=== PATIENT | male | born 1950 | race Caucasian/White ===

== ENCOUNTER 2018-01-01 07:48 | Inpatient (IN) | payer MEDICARE, OTHER ==
[2018-01-01] VITALS (19 sets, daily range): BP systolic 98–168; BP diastolic 51–90
[~2018-01-01] VITALS: Ht 177.8 cm; Wt 93.9 kg
--- NOTE | ~2018-01-01 | EKG ---
[place] [address] ELECTROCARDIOGRAM REPORT Name: BASSEM BRYANT Room: [address] ADM IN M.R.#: [id number] Admission: 01/01/18 Attend Phys: Davon Ordonez MD, F Discharge: Date of : 48 Report #: [id number] THIS REPORT FOR: //name// [facility] Test Date: 2018-01-02 Test Time: 08:41:28 Pat Name: BASSEM BRYANT Department: Room: [address] Gender: M Lead Radiologic Technologist: : 1950 Requested By: Davon Ordonez Order Number: [id number] Reading MD: Measurements Intervals [place] Rate: 52 P: 70 MD: 161 QRS: 70 QRSD: 91 T: 125 QT: 547 QTc: 509 Interpretive Statements Sinus rhythm Probable left atrial enlargement Abnormal T, consider ischemia, lateral leads Prolonged QT interval Compared to ECG 01/01/2018 14:16:10 No significant changes [email or web address] By: 0841 0841 Epiphany EpiphanyMD /EPI
--- NOTE | ~2018-01-01 | H ---
[address] [address] HISTORY AND PHYSICAL Name: BASSEM BRYANT Room: [address] IN .R.#: [id number] Admission: 01/01/18 Attend Phys: Davon Ordonez MD, F Discharge: 01/02/18 Date of : 48 Report #: [id number] THIS REPORT FOR: //name// Please refer to the History and Physical performed in the physician's office. By: [id number] Records Staff MARLENY /PEACE
[~2018-01-01 07:48] MED LIST: BYSTOLIC 5 MG5 M1 PO; SORINE 80 MG TA80 M1 PO; XARELTO20 MG PO
[2018-01-01 08:37] LABS: HEMATOCRIT 46.7 % (42.0-52.0); HEMOGLOBIN 15.4 gm/dL (14.0-18.0); MCH 33.2 pg (26.0-34.0); MCV 100.7 fL (80.0-100.0); MPV 9.1 fl. (7.2-11.1); RBC 4.64 mil/uL (4.50-6.00); RDW-CV 13.6 % (10.5-14.5); WBC 7.1 thou/uL (4.0-11.0)
[2018-01-01 08:46] LABS: PROTIME 10.4 Seconds (9.20-11.50)
[2018-01-01] MEDS ORDERED: ASPIR 8181 MG PO (08:59)
[2018-01-01] MEDS ORDERED: CARDIZEM CD120 MG PO (09:00)
--- NOTE | 2018-01-01 09:07 | EKG ---
[place] [address] ELECTROCARDIOGRAM REPORT Name: BRYANTBASSEM Heaven Room: [facility]#: [id number] Admission: 01/01/18 Attend Phys: Davon Ordonez MD, F Discharge: Date of : 48 Report #: [id number] THIS REPORT FOR: //name// [facility] Test Date: 2018-01-01 Test Time: 08:24:10 Pat Name: BASSEM BRYANT Department: Room: Gender: M Embossed Or Impressed Lettering Painter: [facility] : 1950 Requested By: Davon Ordonez Order Number: [id number] Reading MD: Davon Ordonez Measurements Intervals [place] Rate: 124 P: 120 ID: 130 QRS: 63 QRSD: 83 T: 141 QT: 334 QTc: 480 Interpretive Statements Sinus tachycardia Borderline repolarization abnormality Borderline prolonged QT interval Compared to ECG 12/16/2016 08:31:50 ST (T wave) deviation now present Sinus rhythm no longer present Electronically Signed On 01-01-2018 9:07:36 COLLISION CENTER MANAGER by Davon Ordonez [email or web address] <ELECTRONICALLY SIGNED> By: Davon Ordonez MD, [facility] 11/09/11 906 3 3 Davon Ordonez MD, [facility] /EPI
[2018-01-01 09:15] LABS: ALBUMIN 3.8 g/dL (3.4-5.0); ALKALINE PHOSPHATASE 113 U/L (46-116); ANION GAP 8 mmol/L (7-16); BUN 13 mg/dL (7-18); CALCIUM 8.7 mg/dL (8.5-10.1); CHLORIDE 104 mmol/L (98-107); CHOLESTEROL 190 mg/dL (<200); CO2 28 mmol/L (21-32); GLUCOSE 93 mg/dL (70-99); HDL CHOLESTEROL 42 mg/dL (>40); LDL CHOLESTEROL 126 mg/dL (<100); POTASSIUM 4.7 mmol/L (3.5-5.1); SGOT 23 U/L (15-37); SGPT 37 U/L (30-65); SODIUM 140 mmol/L (136-145); TC:HDL 4.5 Ratio (Not establshd); TOTAL PROTEIN 7.1 g/dL (6.4-8.2); TRIGLYCERIDE 110 mg/dL (<150); VLDL 22 mg/dL (<40)
[2018-01-01 09:16] LABS: SERUM ASSESSMENT Clear
--- NOTE | 2018-01-01 14:43 | TEE ---
[place] [address] TRANSESOPHAGEAL ECHOCARDIOGRAM Name: BASSEM BRYANT Room: [address] IN .R.#: [id number] Admission: 01/01/18 Attend Phys: Davon Ordonez MD Discharge: Date of : 48 Date of Service: 01/01/18 1443 Report #: [id number] THIS REPORT FOR: //name// APPROVED REPORT Study performed: 01/01/2018 13:39:54 EXAM: Transesophageal Echocardiogram Patient Location: Out-Patient Status: routine BSA: 2.13 HR: 106 bpm BP: 130/76 mmHg Rhythm: Atrial Fibrillation Other Information Study Quality: Excellent Indications Atrial Fibrillation Echo Enhancing Agent Indication: Rule out Shunt Agent(s) / Amount(s) Used: Agitated Saline 20 cc Procedure After obtaining informed consent, patient underwent transesophageal echo in the Store [employer]. Type of Sedation : Conscious Sedation Sedation was administered by Mercy Pimentel RN. Sedation start time: 1343 Case end Time: 1404 Sedation was achieved intravenously with: Versed (6) Fentanyl (50) Transesophageal probe was inserted and advanced into esophagus without difficulty by Davon Ordonez MD, [facility]. Echo enhancement indication: R/O Septal defect. Echo enhancement agent administered: Agitated Saline The JASSON was performed without complications. Synchronized Cardioversion acheived with 300 Joules after 1 attempt(s). Rhythm following Synchronized Cardioversion: Sinus Bradycardia Throughout the procedure, the blood pressure, pulse oximetry, cardiac rhythm, and rate were monitored. The patient tolerated the procedure without adverse effects. Recovery from conscious sedation was uneventful [place] [address] TRANSESOPHAGEAL ECHOCARDIOGRAM Name: BASSEM RBYANT Room: [address] IN [facility]#: [id number] Admission: 01/01/18 Attend Phys: Davon Ordonez MD Discharge: Date of : 48 Date of Service: 01/01/18 1443 Report #: [id number] stable. Left Ventricle The left ventricle is normal size. There is normal LV segmental wall motion. There is normal left ventricular wall thickness. Left ventricular systolic function is normal. The left ventricular ejection fraction is within the normal range. LVEF is 50-55%. Right Ventricle The right ventricle is normal size. The right ventricular systolic function is normal. Atria No thrombus is visualized in the left atrium or appendage. The left atrium size is normal. Interatrial septum is intact without evidence of ASD or PFO. The right atrium size is normal. Aortic Valve The aortic valve is normal in structure. No aortic regurgitation is present. There is no aortic valvular stenosis. Mitral Valve The mitral valve is normal in structure. Moderate mitral regurgitation. No evidence of mitral valve stenosis. Tricuspid Valve The tricuspid valve is normal in structure. Moderate tricuspid regurgitation. Pulmonic Valve The pulmonary valve is normal in structure. There is no pulmonic valvular regurgitation. Great Vessels The aortic root is normal in size. Pericardium There is no pericardial effusion. <Conclusion> LVEF is 50-55%. No thrombus is visualized in the left atrium or appendage. The left atrium size is normal. Interatrial septum is intact without evidence of ASD or PFO. Moderate [place] [address] TRANSESOPHAGEAL ECHOCARDIOGRAM Name: BASSEM BRYANT Room: [address] IN ..#: [id number] Admission: 01/01/18 Attend Phys: Davon Ordonez MD Discharge: Date of : 48 Date of Service: 01/01/181442 Report #: [id number] Moderate tricuspid regurgitation. successful cardioversion of atrial tachycardia to sinus bradycardia <ELECTRONICALLY SIGNED> By: Davon Ordonez MD, FACC 01/01/181442 42 42 Davon Ordonez MD, FACC /INF
--- NOTE | 2018-01-01 16:43 | EKG ---
[place] [address] ELECTROCARDIOGRAM REPORT Name: BRYANTBASSEM Room: [address] ADM IN M.R.#: [id number] Admission: 01/01/18 Attend Phys: Davon Ordonez MD, F Discharge: Date of : 48 Report #: [id number] THIS REPORT FOR: //name// [facility] Test Date: 2018-01-01 Test Time: 14:16:10 Pat Name: BASSEM BRYANT Department: Room: [address] Gender: M Credit Control Administrator: JENISE : 1950 Requested By: Davon Ordonez Order Number: [id number] Reading MD: Davon Ordonez Measurements Intervals [place] Rate: 58 P: 65 RI: 158 QRS: 73 QRSD: 84 T: 128 QT: 541 QTc: 532 Interpretive Statements Sinus rhythm Probable left atrial enlargement Abnormal T, consider ischemia, lateral leads Prolonged QT interval Compared to ECG 01/01/2018 08:24:10 T-wave abnormality now present Possible ischemia now present Sinus tachycardia no longer present Electronically Signed On 01-01-2018 16:43:27 BORE MILL OPERATOR FOR P[employer]IC by Davon Ordonez [email or web address] <ELECTRONICALLY SIGNED> By: Davon Ordonez MD, FAC 01/01/18 1643 1416 1416 Davon Ordonez MD, [facility] /EPI
[2018-01-02] VITALS: BP 113/71
[2018-01-02 04:00] VITALS: BP 130/78
[2018-01-02 07:48] VITALS: BP 128/81
[2018-01-02 07:52] LABS: CHOLESTEROL 173 mg/dL (<200); HDL CHOLESTEROL 40 mg/dL (>40); LDL CHOLESTEROL 116 mg/dL (<100); TC:HDL 4.3 Ratio (Not establshd); TRIGLYCERIDE 86 mg/dL (<150); VLDL 17 mg/dL (<40)
[2018-01-02 07:56] LABS: SERUM ASSESSMENT Clear
[2018-01-02 08:44] VITALS: BP 128/81
[2018-01-02] MEDS ORDERED: SOTALOL160 MG PO (09:47)
[2018-01-02] MEDS ORDERED: XARELTO20 MG PO (09:48)
[2018-01-02] MEDS ORDERED: TYLENOL325 MG PO (09:49)
[2018-01-02 09:52] VITALS: BP 128/81
[2018-01-02] MEDS ORDERED: ST. JOSEPH ASPI81 MG PO (12:49)
[2018-01-02] MEDS ORDERED: NITROGLYCERIN0.4 MG SUBLING (12:50)
--- NOTE | 2018-01-02 17:17 | D ---
[address] [address] DISCHARGE SUMMARY Name: BASSEM BRYANT Room: [address] IN M.R.#: [id number] Admission: 01/01/18 Attend Phys: Davon Ordonez MD, F Discharge: 01/02/18 Date of : 48 Report #: [id number] THIS REPORT FOR: //name// CC: Davon Ordonez FAM unknown Patient's Chart DATE OF SERVICE: 01/02/2018 DISCHARGE DIAGNOSES: 1. Paroxysmal atrial fibrillation. 2. Hyperlipidemia. 3. Hypertension. 4. Carotid stenosis. CONSULTANTS: None. PROCEDURES: 1. Transesophageal echocardiogram. 2. Direct current cardioversion of atrial fibrillation. HISTORY OF PRESENT ILLNESS: The patient is a 67-year-old single white male who was admitted after an episode of atrial tachycardia. 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 He stays fairly active, exercises on a regular basis. He previously presented in November 2016 after he had an ECG for an insurance plan and was told that it was abnormal. He also noticed some shortness of breath, fatigue. I saw him in the Cardiology Clinic in November of 2016 and he was noted to be in atrial fibrillation. He was started on Xarelto and I admitted him to [place] in November and performed a JASSON. This showed no thrombus. He was converted to sinus rhythm. I then placed him on sotalol 80 mg twice a day. The patient was discharged and I saw him in the office in followup. He underwent screening that showed mild carotid stenosis. He underwent a nuclear stress test that showed no evidence of ischemia. After he remained in sinus rhythm for several weeks, I discontinued the Xarelto because of his low CHADS score. The patient has done well since that time. However, recently, the patient had increasing dyspnea on exertion. He also noticed some intermittent chest pressure. He had one episode where he became diaphoretic. He saw my nurse practitioner last week in the Cardiology Clinic. He was noted to be in an atrial tachycardia. He was started on diltiazem and scheduled to be admitted to the hospital on January 01. He denied any syncope, bleeding, fever. PAST MEDICAL HISTORY: Significant for no major surgical procedures. He had had a history of hypertension in the past. No diabetes. He did have a history of hyperlipidemia, but he could [place] [address] DISCHARGE SUMMARY Name: BASSEM BRYANT Heaven Room: [address]#: [id number] Admission: 01/01/18 Attend Phys: Davon Ordonez MD, F Discharge: 01/02/18 Date of : 48 Report #: [id number] MEDICATIONS: On admission include sotalol 80 mg twice a day and aspirin a day. He recently was started on Cardizem CD 120 mg a day. ALLERGIES: He had no known drug allergies. PHYSICAL EXAMINATION: VITAL SIGNS: Blood pressure on admission was 140/70, pulse is 120. CHEST: Clear to auscultation. CARDIAC: Regular tachycardia. ABDOMEN: Soft. EXTREMITIES: Had no edema. SKIN: Warm and dry. LABORATORY DATA: His ECG on admission showed what appeared to be an atrial tachycardia with 2:1 ventricular response rate, rate of 120 beats minute. His workup, he did have a chest x-ray that showed cardiomegaly, no pulmonary edema. LABORATORY WORK: Sodium 140, potassium 4.7, creatinine 1.0, glucose 93. Cholesterol 173, triglyceride 86, HDL 40, LDL 116. TSH 1.8. White blood cell count 4.6, hemoglobin 15.4. HOSPITAL COURSE: The patient was given a dose of Xarelto 20 mg. I then waited 3 hours. He was kept n.p.o. and I performed a JASSON. This showed no thrombus. Ejection fraction was 50%. There is no PFO. There was moderate mitral and tricuspid insufficiency. He was then cardioverted with 300 joules to sinus bradycardia. He tolerated this well. Sotalol was increased from 80 to 160 mg twice day. He was kept overnight and had no recurrent atrial arrhythmias. At time of discharge, he is ambulating, had no significant complaints. At time of discharge, he had a blood pressure of 120/80, pulse 60. He is afebrile. He was discharged on sotalol 160 mg twice a day and Xarelto 20 mg with supper. I do believe he needs to continue chronic anticoagulation. The patient prefers generic medications since he does not have insurance plan to cover his medications. I therefore suggested that when he returned to see my nurse practitioner in the office in 2 weeks, he will be given a prescription for warfarin maintaining an INR of 2-3. When he transitions from Xarelto to warfarin, the warfarin will need to be started 3 days prior to discontinuing Xarelto. If he has recurrent atrial arrhythmias, I would recommend increasing sotalol to 240 mg twice a day. I did recommend he start exercise program, maintain low fat diet. He will need followup carotid Doppler study in the office. I also recommended referring him to Dr. Cedillo in EP Clinic for consideration of radiofrequency ablation. At this time, however, he has no restrictions from a cardiac standpoint. His ECG at the time of discharge showed [facility] [address] [place] [address] DISCHARGE SUMMARY Name: BASSEM BRYANT Room: [address] IN M.R.#: [id number] Admission: 01/01/18 Attend Phys: Davon Ordonez MD, F Discharge: 01/02/18 Date of : 48 Report #: [id number] a sinus rhythm with nonspecific T-wave changes. There was no significant QT prolongation. <ELECTRONICALLY SIGNED> By: Davon Ordonez MD, FACNicolas 01/02/18 1717 0827 1016David Jenae Ordonez MD, FACNicolas /nt
== END 2018-01-02 10:44 | disposition home or self-care (01) | DRG 309 ==
LOC: M.CL 07:48 → M.2W 09:35
PROVIDERS: Internal Medicine Cardiovascular Disease; ADMIT Internal Medicine Cardiovascular Disease
DX: I48.0 Paroxysmal atrial fibrillation (principal); D68.69 Other thrombophilia; I65.23 Occlusion and stenosis of bilateral carotid arteries; E78.5 Hyperlipidemia, unspecified; I10 Essential (primary) hypertension; M10.9 Gout, unspecified; R00.0 Tachycardia, unspecified; Z79.01 Long term (current) use of anticoagulants; Z79.899 Other long term (current) drug therapy

== ENCOUNTER 2018-01-02 12:21 | Emergency (ER) | payer MEDICARE, OTHER ==
[~2018-01-02] VITALS: Ht 177.8 cm; Wt 95.3 kg
[~2018-01-02 12:21] MED LIST changes: +ASPIR 8181 MG PO; +CARDIZEM CD120 MG PO; +SOTALOL160 MG PO; +TYLENOL325 MG PO
[2018-01-02] MEDS ORDERED: ST. JOSEPH ASPI81 MG PO (12:49)
[2018-01-02] MEDS ORDERED: NITROGLYCERIN0.4 MG SUBLING (12:50)
[2018-01-02 12:58] LABS: ABSOLUTE EOSINOPHILS 0.3 thou/uL (0.0-0.7); ABSOLUTE LYMPHOCYTES 1.9 thou/uL (0.8-5.3); ABSOLUTE MONOCYTES 0.8 thou/uL (0.0-1.2); BASOPHILS 0.1 %; EOSINOPHILS 3.5 %; HEMATOCRIT 43.5 % (42.0-52.0); HEMOGLOBIN 14.4 gm/dL (14.0-18.0); LYMPHOCYTES 24.2 %; MCH 33.2 pg (26.0-34.0); MCHC 33.2 g/dL (28.0-37.0); MCV 100.1 fL (80.0-100.0); MONOCYTES 10.1 %; MPV 8.9 fl. (7.2-11.1); NUCLEATED RBCS 0 /100WBC; PLATELET COUNT* 181 thou/uL (150-400); POLYS 62.1 %; RBC 4.34 mil/uL (4.50-6.00)
[2018-01-02 13:07] LABS: PROTIME 16.1 Seconds (9.20-11.50)
[2018-01-02 13:09] LABS: APTT 32.9 Seconds (25.0-31.3); INR 1.6
[2018-01-02 13:14] LABS: ANION GAP 8 mmol/L (7-16); BUN 19 mg/dL (7-18); CALCIUM 8.9 mg/dL (8.5-10.1); CHLORIDE 105 mmol/L (98-107); CO2 27 mmol/L (21-32); CREATININE 1.2 mg/dL (0.6-1.3); GLUCOSE 103 mg/dL (70-99); POTASSIUM 4.8 mmol/L (3.5-5.1); SODIUM 140 mmol/L (136-145)
[2018-01-02 13:24] LABS: ALBUMIN 3.5 g/dL (3.4-5.0); ALKALINE PHOSPHATASE 86 U/L (46-116); NT-PRO BRAIN NAT PEPTIDE 1237 pg/mL (<300); SGOT 23 U/L (15-37); SGPT 32 U/L (30-65); TOTAL BILIRUBIN 1.4 mg/dL (<0.1-1.0); TOTAL PROTEIN 6.5 g/dL (6.4-8.2); TROPONIN-I LEVEL <0.06 ng/mL (<0.06)
[2018-01-02 14:36] LABS: URINE BILIRUBIN NEGATIVE (Negative); URINE BLOOD NEGATIVE (Negative); URINE CLARITY CLEAR; URINE COLOR YELLOW; URINE GLUCOSE-RANDOM NEGATIVE (Negative); URINE KETONES NEGATIVE (Negative); URINE LEUKOCYTES-REFLEX NEGATIVE (Negative); URINE NITRITE-REFLEX NEGATIVE (Negative); URINE SPECIFIC GRAVITY >= 1.030 (1.005-1.030); URINE UROBILINOGEN 0.2 E.U./dl (0.2-1.0)
[2018-01-02 14:37] LABS: URINE PROTEIN 2+ (Negative)
[2018-01-02 15:39] VITALS: BP 136/78
--- NOTE | 2018-01-02 16:23 | EKG ---
[place] [address] ELECTROCARDIOGRAM REPORT Name: BASSEM BRYANT Room: [facility]#: [id number] Admission: 01/02/18 Attend Phys: Discharge: 01/02/18 Date of : 48 Report #: [id number] THIS REPORT FOR: //name// [facility] ED Test Date: 2018-01-02 Test Time: 12:26:06 Pat Name: BASSEM BRYANT Department: Room: Gender: M Executive Candidate Developer: Yessenia BERG : 1950 Requested By: Daniel Esteban Order Number: [id number] MD: Silvestre Lam Measurements Intervals [place] Rate: 48 P: 73 UT: 168 QRS: 57 QRSD: 94 T: 133 QT: 637 QTc: 570 Interpretive Statements Sinus bradycardia Probable left atrial enlargement Abnrm T, consider ischemia, anterolateral lds Prolonged QT interval Baseline wander in lead(s) V4 Compared to ECG 01/02/2018 08:41:28 Prolonged QT interval now present T-wave abnormality no longer present Possible ischemia still present Electronically Signed On 01-02-2018 16:23:17 FOUNDRY OPERATOR by Silvestre Lam [email or web address] <ELECTRONICALLY SIGNED> By: Silvestre Lam MD, FACC 01/02/18 1623 1226 1226 Silvestre Lam MD, FAC /EPI
== END 2018-01-02 15:39 | disposition home or self-care (01) ==
LOC: M.ERS 12:21
PROVIDERS: Emergency Medicine
DX: R55 Syncope and collapse (principal); R53.1 Weakness; R22.42 Localized swelling, mass and lump, left lower limb; I48.91 Unspecified atrial fibrillation

== ENCOUNTER 2018-07-21 19:28 | Inpatient (IN) | payer MEDICARE, OTHER ==
[~2018-07-21] VITALS: Ht 167.6 cm; Wt 100.7 kg
--- NOTE | ~2018-07-21 | EEG ---
[address] [address] EEG STUDY REPORT Name: BASSEM BRYANT Room: [address] IN M.R.#: [id number] Admission: 07/21/18 Attend Phys: Jalen Mancilla, Discharge: Date of : 48 Report #: [id number] THIS REPORT FOR: //name// CC: YOLANDA physician/PCP Jalen Mancilla DATE OF SERVICE: 07/22/2018 The patient had episodes like drop attacks. EEG is being done to evaluate the patient for the possibility of seizure. EEG was done by placing the electrodes by standard 10-20 system of electrode placement. Both referential and sequential montages were used for recording. The background activity in this patient's EEG is about 9 Hz and 30 microvolt. This is a symmetrical activity. The patient became drowsy and that is associated with bilateral slowing and vertex sharp waves. Photic stimulation was unremarkable. Throughout the record, no active epileptiform activity was noticed. IMPRESSION: This patient's EEG is unremarkable. Thank you very much for this referral. By: 1251 1259Patrick Bettencourt MD /nt
--- NOTE | ~2018-07-21 | CON ---
[address] [address] CONSULTATION Name: BASSEM BRYANT Room: [address] [place]#: [id number] Admission: 07/21/18 Attend Phys: Jalen Mancilla, Discharge: Date of : 48 Report #: [id number] THIS REPORT FOR: //name// CC: YOLANDA physician/PCP Jalen Mancilla DATE OF SERVICE: 07/22/2018 HISTORY OF PRESENT ILLNESS: This is a 68-year-old male patient who was admitted with an episode of speech difficulty as well as what he described as an episode of losing sudden strength in both lower extremities. That lasted for just a split second. That comes spontaneously. This was his third episode. First episode was not associated with any alcohol intake, but the seconds and third episode was. The whole thing lasted just for a few seconds except for speech difficulty which lasted longer. His blood alcohol level was 186 when he came in. REVIEW OF SYSTEMS: Indicate that this patient sees Dr. Ordonez for atrial fibrillation. He said that he had an ablation. He looks like is on anticoagulation from his records. He feels back to his baseline now. A 14-point review of system was carried out and he does not complain of any eye, ENT, cardiac, respiratory, GI, , musculoskeletal, constitutional, dermatological, hematological, psychiatric, throat or allergic symptom associated with present symptomatology. PAST MEDICAL HISTORY: Positive for these episodes as described above. FAMILY HISTORY: Negative for any early age stroke. SOCIAL HISTORY: He drinks alcohol. He said he does not smoke. PHYSICAL EXAMINATION: Indicates he is alert, responsive, able to follow simple and complex command. His speech, concentration, fund of knowledge and memory is at his baseline. His cranial nerve examination 2-12 looks unremarkable. His strength, sensation, reflexes, tone is symmetrical, but reflexes appeared to be diminished on both sides. Position sense is intact. Pulses are palpable. He has no edema, cyanosis or jaundice. There is no papilledema. There is no meningeal sign. He is moderately built individual who does not have any dysmorphic features of eyes, ears and face. His vision and hearing looks adequate. He has no thyroid mass. He has no respiratory difficulty or rhonchi. Vital signs indicate a blood pressure of 153/69, respiration is 18, pulse is 107, temperature is 98.3. LABORATORY DATA: White count is 6.6. Sodium is normal and his creatinine is 104. He had a CT scan of the head done that does not show any acute changes, [place] [address] CONSULTATION Name: BASSEM BRYANT Room: [address] [place]#: [id number] Admission: 07/21/18 Attend Phys: Jalen Mancilla, Discharge: Date of : 48 Report #: [id number] IMPRESSION: It is a pretty unusual episode he is having. Neurologically, I think we should exclude the possibility of drop attack and drop attack can occur because of posterior fossa transient ischemic attack or because of seizures, but history is not very classical for that. He probably needs some workup for prolonged monitoring. Most importantly, he needs to stop drinking alcohol because depending upon how much he drinks; it can induce cardiac abnormality including atrial fibrillation. He understands that and he is planning to do that. RECOMMENDATIONS: 1. We will await what the MRI and MRA show. 2. I will get a carotid Doppler done. 3. I will get an EEG done. 4. We will evaluate this and see if we need to do any further testing in that regard. Thank you very much for this referral. By: 0831 [id number] Bettencourt MD /nt
[~2018-07-21 19:28] MED LIST changes: +NITROGLYCERIN0.4 MG SUBLING
[2018-07-21 19:34] VITALS: BP 151/66
[2018-07-21] MEDS ORDERED: LOSARTAN-HCTZ1 EAC1 PO (19:40)
[2018-07-21 19:54] LABS: ABSOLUTE EOSINOPHILS 0.3 thou/uL (0.0-0.7); ABSOLUTE LYMPHOCYTES 2.2 thou/uL (0.8-5.3); ABSOLUTE MONOCYTES 0.8 thou/uL (0.0-1.2); ABSOLUTE NEUTROPHILS 3.3 thou/uL (1.6-8.1); BASOPHILS 0.2 %; EOSINOPHILS 5.1 %; HEMATOCRIT 42.9 % (42.0-52.0); HEMOGLOBIN 14.6 gm/dL (14.0-18.0); LYMPHOCYTES 33.6 %; MCH 33.1 pg (26.0-34.0); MCHC 34.1 g/dL (28.0-37.0); MONOCYTES 11.8 %; MPV 8.7 fl. (7.2-11.1); NUCLEATED RBCS 0 /100WBC; PLATELET COUNT* 216 thou/uL (150-400); POLYS 49.3 %; RBC 4.43 mil/uL (4.50-6.00); WBC 6.6 thou/uL (4.0-11.0)
[2018-07-21 20:01] LABS: ANION GAP 12 mmol/L (7-16); BUN 14 mg/dL (7-18); CALCIUM 8.9 mg/dL (8.5-10.1); CHLORIDE 103 mmol/L (98-107); CO2 25 mmol/L (21-32); CREATININE 1.4 mg/dL (0.6-1.3); GLUCOSE 83 mg/dL (70-99); POTASSIUM 3.5 mmol/L (3.5-5.1); SODIUM 140 mmol/L (136-145)
[2018-07-21 20:10] LABS: ALBUMIN 4.1 g/dL (3.4-5.0); ALKALINE PHOSPHATASE 94 U/L (46-116); SGOT 20 U/L (15-37); SGPT 36 U/L (30-65); TOTAL BILIRUBIN 0.4 mg/dL (<0.1-1.0); TOTAL PROTEIN 7.9 g/dL (6.4-8.2); TROPONIN-I LEVEL <0.06 ng/mL (<0.06)
[2018-07-21 20:15] LABS: BE -3.6 mmol/L (-2 to +3); PCO2 40.9 mmHg (35.0-45.0); PO2 85.6 mmHg (75.0-100.0); pH 7.346 (7.340-7.450)
[2018-07-21 21:33] LABS: URINE BILIRUBIN NEGATIVE (Negative); URINE BLOOD NEGATIVE (Negative); URINE CLARITY CLEAR; URINE COLOR YELLOW; URINE GLUCOSE-RANDOM NEGATIVE (Negative); URINE KETONES NEGATIVE (Negative); URINE LEUKOCYTES-REFLEX NEGATIVE (Negative); URINE NITRITE-REFLEX NEGATIVE (Negative); URINE PROTEIN NEGATIVE (Negative); URINE UROBILINOGEN 0.2 E.U./dl (0.2-1.0)
[2018-07-21 22:20] VITALS: BP 129/62
[2018-07-21 22:22] LABS: AMP/METHAMP Negative (Negative); BARBITURATES Negative (Negative); BENZODIAZEPINES Negative (Negative); COCAINE Negative (Negative); METHADONE Negative (Negative); OPIATES Negative (Negative); PCP Negative (Negative); THC Negative (Negative)
[2018-07-22 04:00] VITALS: BP 153/69
[2018-07-22 08:00] VITALS: BP 201/88
[2018-07-22 10:15] LABS: HEMATOCRIT 40.1 % (42.0-52.0); HEMOGLOBIN 13.3 gm/dL (14.0-18.0); MCH 32.4 pg (26.0-34.0); MPV 9.4 fl. (7.2-11.1); NUCLEATED RBCS 0 /100WBC; PLATELET COUNT* 191 thou/uL (150-400); RBC 4.09 mil/uL (4.50-6.00); RDW-CV 13.5 % (10.5-14.5); WBC 5.3 thou/uL (4.0-11.0)
[2018-07-22 10:21] LABS: CALCIUM 8.2 mg/dL (8.5-10.1); CREATININE 1.2 mg/dL (0.6-1.3); MAGNESIUM 1.8 mg/dL (1.8-2.4); PHOSPHORUS* 3.2 mg/dL (2.5-4.9); POTASSIUM 3.7 mmol/L (3.5-5.1)
[2018-07-22 10:34] LABS: ABSOLUTE BASOPHILS 0.1 thou/uL (0.0-0.2); ABSOLUTE EOSINOPHILS 0.6 thou/uL (0.0-0.7); ABSOLUTE LYMPHOCYTES 2.2 thou/uL (0.8-5.3); ABSOLUTE MONOCYTES 0.6 thou/uL (0.0-1.2); ABSOLUTE NEUTROPHILS 1.9 thou/uL (1.6-8.1); PLATELET ESTIMATE ADEQUATE
[2018-07-22 10:35] LABS: ANISOCYTOSIS 1+; POIKILOCYTOSIS 1+
--- NOTE | 2018-07-22 14:29 | EKG ---
[place] [address] ELECTROCARDIOGRAM REPORT Name: BASSEM BRYANT Room: [place] [address] ADM IN .R.#: [id number] Admission: 07/21/18 Attend Phys: Jalen Mancilla, Discharge: Date of : 48 Report #: [id number] THIS REPORT FOR: //name// [facility] ED Test Date: 2018-07-21 Test Time: 20:13:36 Pat Name: BASSEM BRYANT Department: Room: [facility] Gender: M Siding Stapler: CLEO : 1950 Requested By: Ernestina Alonzo Order Number: [id number] MD: Mahad Bishop Measurements Intervals [place] Rate: 56 P: 52 MS: 160 QRS: 62 QRSD: 81 T: 79 QT: 485 QTc: 469 Interpretive Statements Sinus rhythm Minimal ST elevation, inferior leads Compared to ECG 01/02/2018 12:26:06 ST (T wave) deviation now present Sinus bradycardia no longer present Possible ischemia no longer present Prolonged QT interval no longer present Electronically Signed On 07-22-2018 14:29:06 CDT by Mahad Bishop [email or web address] <ELECTRONICALLY SIGNED> By: Mahad Bishop MD, FACC 07/22/18 1429 12 12 Mahad Bishop MD, FACC /EPI
[2018-07-22 16:00] VITALS: BP 146/71
[2018-07-22 18:10] LABS: GLYCOHEMOGLOBIN (HGB A1C) 5.3 % (4.8-5.6)
[2018-07-22 20:54] VITALS: BP 150/53
[2018-07-23] VITALS: BP 182/80
[2018-07-23 04:00] VITALS: BP 201/95
[2018-07-23 05:03] LABS: HEMATOCRIT 41.3 % (42.0-52.0); HEMOGLOBIN 14.1 gm/dL (14.0-18.0); MCH 33.2 pg (26.0-34.0); MCHC 34.1 g/dL (28.0-37.0); MCV 97.3 fL (80.0-100.0); MPV 8.8 fl. (7.2-11.1); RBC 4.25 mil/uL (4.50-6.00); RDW-CV 13.1 % (10.5-14.5); WBC 6.2 thou/uL (4.0-11.0)
[2018-07-23 05:25] LABS: ANION GAP 7 mmol/L (7-16); BUN 12 mg/dL (7-18); CALCIUM 9.1 mg/dL (8.5-10.1); CHLORIDE 105 mmol/L (98-107); CHOLESTEROL 214 mg/dL (<200); CO2 29 mmol/L (21-32); GLUCOSE 105 mg/dL (70-99); HDL CHOLESTEROL 44 mg/dL (>40); LDL CHOLESTEROL 144 mg/dL (<100); MAGNESIUM 2.2 mg/dL (1.8-2.4); POTASSIUM 4.2 mmol/L (3.5-5.1); SODIUM 141 mmol/L (136-145); TC:HDL 4.9 Ratio (Not establshd); TRIGLYCERIDE 131 mg/dL (<150); VLDL 26 mg/dL (<40)
[2018-07-23 05:26] LABS: SERUM ASSESSMENT Clear
[2018-07-23 07:30] VITALS: BP 156/81
[2018-07-23 12:04] VITALS: BP 170/57
[2018-07-23] MEDS ORDERED: ATORVASTATIN CA40 MG PO (12:47)
[2018-07-23] MEDS ORDERED: B-COMPLEX-VITA1 EACH PO (12:49)
[2018-07-23] MEDS ORDERED: ST. JOSEPH ASPI81 MG PO (13:50)
[2018-07-23 13:56] VITALS: BP 170/57
== END 2018-07-23 14:27 | disposition home or self-care (01) | DRG 896 ==
LOC: M.ERS 19:28 → M.TBA-ER 21:47 → M.2W 21:47
PROVIDERS: Family Medicine; Personal Emergency Response Attendant; ADMIT Family Medicine
DX: F10.129 Alcohol abuse with intoxication, unspecified (principal); G93.41 Metabolic encephalopathy; N17.0 Acute kidney failure with tubular necrosis; D68.69 Other thrombophilia; I48.91 Unspecified atrial fibrillation; R20.0 Anesthesia of skin; I12.9 Hypertensive chronic kidney disease with stage 1 through stage 4 chronic kidney disease, or unspecified chronic kidney disease; N18.3 Chronic kidney disease, stage 3 (moderate); G62.9 Polyneuropathy, unspecified; M48.061 Spinal stenosis, lumbar region without neurogenic claudication; E78.5 Hyperlipidemia, unspecified; E53.8 Deficiency of other specified B group vitamins; I95.9 Hypotension, unspecified; Y90.9 Presence of alcohol in blood, level not specified

== ENCOUNTER → 2020-08-03 | Outpatient (CLI) | payer MEDICARE, OTHER ==
[~2020-08-03] MED LIST changes: +ATORVASTATIN CA40 MG PO; +B-COMPLEX-VITA1 EACH PO; +LOSARTAN-HCTZ1 EAC1 PO; +ST. JOSEPH ASPI81 MG PO
[2020-08-03 09:04] LABS: CALCIUM 9.7 mg/dL (8.5-10.1)
== END ==
LOC: M.LAB 08:34
PROVIDERS: ATTEND Nurse Practitioner
DX: I48.0 Paroxysmal atrial fibrillation (principal); I50.30 Unspecified diastolic (congestive) heart failure

== ENCOUNTER → 2020-08-16 | Outpatient (CLI) | payer MEDICARE, OTHER ==
--- NOTE | 2020-08-16 09:32 | 2DMMODE ---
[place] [address] 2 D/M-MODE ECHOCARDIOGRAM Name: BASSEM BRYANT Room: [facility]#: [id number] Admission: 08/16/20 Attend Phys: Juli Norris, Discharge: Date of : 48 Date of Service: 08/16/20 0932 Report #: [id number] THIS REPORT FOR: cc: Stephon Hopkins Russell J. DO Holkins,Miles Santana MD [facility] ~ APPROVED REPORT Study performed: 08/16/2020 07:46:20 EXAM: Comprehensive 2D, Doppler, and color-flow Echocardiogram Patient Location: Out-Patient BSA: 2.12 HR: 90 bpm BP: 104/74 mmHg Other Information Study Quality: Adequate Indications Atrial Fibrillation 2D Dimensions IVSd: 10.54 (7-11mm) LVOT Diam: 21.14 (18-24mm) LVDd: 44.97 mm PWd: 10.01 (7-11mm) Ascending Ao: 35.47 (22-36mm) LVDs: 33.35 (25-40mm) Aortic Root: 30.26 mm Volumes Left Atrial Volume (Systole) LA ESV Index: 43.20 mL/m2 Aortic Valve AoV Peak Og.: 1.09 m/s AO Peak Gr.: 4.73 mmHg LVOT Max P.29 mmHg AO Mean Gr.: 2.78 mmHg LVOT Mean P.18 mmHg LVOT Max V: 1.04 m/s AO V2 VTI: 20.69 cm LVOT Mean V: 0.68 m/s KEO (VTI): 3.20 cm2 LVOT V1 VTI: 18.87 cm Mitral Valve MV Decel. Time: 187.27 [place] [address] 2 D/M-MODE ECHOCARDIOGRAM Name: BASSEM BRYANT Room: [facility]#: [id number] Admission: 08/16/20 Attend Phys: Juli Norris, Discharge: Date of : 48 Date of Service: 08/16/20 0932 Report #: [id number] MV PHT: 54.31 ms MVA (PHT): 4.05 cm2 TDI Medial E' Og.: 0.11 m/s Lateral E' Og.: 0.11 m/s Pulmonary Valve PV Peak Og.: 0.77 m/s PV Peak Gr.: 2.36 mmHg Tricuspid Valve RAP Estimate: 5.00 mmHg TR Peak Gr.: 22.49 mmHg RVSP: 27.49 mmHg PA Pressure: 27.49 mmHg Left Ventricle The left ventricle is normal size. There is normal LV segmental wall motion. There is normal left ventricular wall thickness. Left ventricular systolic function is normal. The left ventricular ejection fraction is within the normal range. LVEF is 55-60%. This study is not technically sufficient to allow evaluation of the LV diastolic function due to atrial fibrillation. Right Ventricle Right ventricle is mildly dilated. The right ventricular systolic function is normal. Atria Left atrium is moderately dilated. Right atrium is moderately dilated. Aortic Valve The Aortic valve is mildly sclerotic. No aortic regurgitation is present. There is no aortic valvular stenosis. Mitral Valve Mild mitral annular calcification. Trace mitral regurgitation. No evidence of mitral valve stenosis. Tricuspid Valve The tricuspid valve is normal in structure. Mild tricuspid regurgitation. Pulmonic Valve The pulmonary valve is normal in structure. There is no pulmonic [place] [address] 2 D/M-MODE ECHOCARDIOGRAM Name: MANNYBASSEM R Room: [facility]#: [id number] Admission: 08/16/20 Attend Phys: Juli Norris, Discharge: Date of : 48 Date of Service: 08/16/20 0932 Report #: [id number] Great Vessels The aortic root is normal in size. IVC is normal in size and collapses >50% with inspiration. Pericardium There is no pericardial effusion. <Conclusion> The left ventricle is normal size. Left ventricular systolic function is normal. The left ventricular ejection fraction is within the normal range. LVEF is 55-60%. This study is not technically sufficient to allow evaluation of the LV diastolic function due to atrial fibrillation. Right ventricle is mildly dilated. Left atrium is moderately dilated. Right atrium is moderately dilated. The Aortic valve is mildly sclerotic. No aortic regurgitation is present. There is no aortic valvular stenosis. Mild mitral annular calcification. Trace mitral regurgitation. No evidence of mitral valve stenosis. The tricuspid valve is normal in structure. Mild tricuspid regurgitation. IVC is normal in size and collapses >50% with inspiration. There is no pericardial effusion. There is normal LV segmental wall motion. <ELECTRONICALLY SIGNED> By: Miles Vera MD, FACC 08/16/20931 1 1 Miles Vera MD, FACC /INF
== END ==
LOC: M.CRD 08:00
PROVIDERS: ATTEND Nurse Practitioner
DX: I07.1 Rheumatic tricuspid insufficiency (principal); I48.0 Paroxysmal atrial fibrillation